=== PATIENT | male | born 1950 | race Caucasian/White ===

== ENCOUNTER 2018-02-06 12:09 | Day surgery (SDC) | payer OTHER ==
[~2018-02-06 12:09] MED LIST: LIDOCAINE 1% PF 2 ML VIAL. ID; MORPHINE SULFATE 4 MG/ML DISP.SYRIN. IV; PROCHLORPERAZINE 10 MG/2 ML VIAL. IV; ceFAZolin 2GM PREMIX 2 GM/50 ML BAG IV; fentaNYL PF VIAL 100 MCG/2 ML VIAL IV
[2018-02-06] MEDS: IV RINGERS,LACTATED 1000ML 1,000 ML IV (12:45)
[2018-02-06] MEDS ORDERED: CHLORHEXIDINE 0.12% 15 ML MOUTHWASH. SWSP (13:30)
[2018-02-06] MEDS ORDERED: SEVOFLURANE > 120 MINUTES. IH (14:21)
[2018-02-06] MEDS ORDERED: ONDANSETRON PF 4 MG/2 ML VIAL. (14:22)
[2018-02-06] MEDS ORDERED: GLYCOPYRROLATE 1 MG/5 ML VIAL. (14:22)
[2018-02-06] MEDS ORDERED: NEOSTIGMINE METHYLSULFATE 5 MG/5 ML SYRINGE. (14:22)
[2018-02-06] MEDS ORDERED: ROCURONIUM 50 MG/5 ML VIAL. (14:22)
[2018-02-06] MEDS ORDERED: METOCLOPRAMIDE HCL 10 MG/2 ML VIAL. (14:22)
[2018-02-06] MEDS ORDERED: MIDAZOLAM HCL/PF 2 MG/2 ML VIAL. (14:22)
[2018-02-06] MEDS ORDERED: fentaNYL PF VIAL 100 MCG/2 ML VIAL (14:22)
[2018-02-06] MEDS ORDERED: DEXAMETHASONE SOD PHOS 20 MG/5 ML VIAL. (14:23)
[2018-02-06] MEDS ORDERED: LIDOCAINE 2% PF Vial for OR 5 ML VIAL. (14:23)
[2018-02-06] MEDS ORDERED: PROPOFOL 20 ML IV (14:23)
[2018-02-06] MEDS ORDERED: GELATIN SPONGE SIZE 100. (14:24)
[2018-02-06] MEDS: BUPIVACAINE-EPI 0.25%-1:200000 50 ML VIAL. (16:56)
[2018-02-06] MEDS: ONDANSETRON PF 4 MG/2 ML VIAL. IV (18:23)
== END 2018-02-06 19:01 | disposition home or self-care (01) ==
LOC: SURG 12:09
DX: K02.9 Dental caries, unspecified (principal); M27.8 Other specified diseases of jaws; E03.9 Hypothyroidism, unspecified; Z98.890 Other specified postprocedural states; M19.90 Unspecified osteoarthritis, unspecified site; F32.9 Major depressive disorder, single episode, unspecified; F17.210 Nicotine dependence, cigarettes, uncomplicated; Z88.8 Allergy status to other drugs, medicaments and biological substances; Z79.899 Other long term (current) drug therapy
CPT/HCPCS: 21032; A7015; J0690; J1100; J2250; J2405; J2704; J2710; J2765; J3010; J3490